=== PATIENT | male | born 1950 | race Caucasian/White ===

== ENCOUNTER → 2017-05-15 | Outpatient (CLI) | payer BC ==
[~2017-05-15] MED LIST: LISI-461 PO; LPT10 PO; OMEG10007 PO; PRED20TA PO
== END | disposition home or self-care (01) ==
LOC: C.PATHSPEC 15:20
DX: L57.0 Actinic keratosis (principal)

== ENCOUNTER → 2018-01-12 | Outpatient (CLI) | payer OTHER | END | disposition home or self-care (01) | LOC: C.PATHSPEC 15:54 | DX: L82.1 Other seborrheic keratosis (principal) ==